=== PATIENT | female | born 1945 ===

== ENCOUNTER 2020-02-08 11:06 | Outpatient (CLI) | payer OTHER ==
[~2020-02-08 11:06] MED LIST: METHOCARBAMOL500 MG PO
== END 2020-02-08 11:41 | disposition home or self-care (01) ==
LOC: NUCLEAR 11:06
PROVIDERS: ATTEND Orthopaedic Surgery Orthopaedic Surgery of the Spine
DX: M81.0 Age-related osteoporosis without current pathological fracture (principal)